=== PATIENT | female | born 1945 | race Caucasian/White ===

== ENCOUNTER 2020-06-10 09:42 | Outpatient (CLI) | payer MEDICARE, OTHER, SELFPAY ==
--- NOTE | 2020-06-10 10:00 | ECG_ITS ---
Measurements Intervals [place] Rate: 58 P: 44 GA: 145 QRS: -31 QRSD: 84 T: 20 QT: 387 QTc: 381 Interpretive Statements SINUS BRADYCARDIA LEFT AXIS DEVIATION LOW QRS VOLTAGE IN PRECORDIAL LEADS POOR R WAVE PROGRESSION, ANTERIOR LEADS BASELINE ARTIFACT- I, II, AVR, AVL, AVF Electronically Signed On 06-10-2020 12:18:00 CDT by Aime Garsia D.O.
== END 2020-06-10 09:43 | disposition home or self-care (01) ==
PROVIDERS: Visit Provider Surgery Plastic and Reconstructive Surgery
DX: E78.00 Pure hypercholesterolemia, unspecified (principal); Z01.818 Encounter for other preprocedural examination; R94.31 Abnormal electrocardiogram [ECG] [EKG]
CPT/HCPCS: 93005

== ENCOUNTER → 2020-06-15 01:20 | Outpatient (CLI) | payer MEDICARE, OTHER, SELFPAY ==
[2020-06-15 20:53] LABS: SARS-CoV-2 RNA PCR Negative
== END ==
PROVIDERS: Visit Provider Surgery Plastic and Reconstructive Surgery
DX: Z01.812 Encounter for preprocedural laboratory examination (principal); Z20.822 Contact with and (suspected) exposure to COVID-19
CPT/HCPCS: C9803; U0003; U0005

== ENCOUNTER 2020-06-18 01:12 | Day surgery (SDC) | payer MEDICARE, OTHER, SELFPAY ==
[2020-06-07 12:58] VITALS: BMI 20.1
--- NOTE | 2020-06-18 08:53 | WPDANESEPPF ---
Anes - Initial Pre Proc Eval Procedure: Operation Date: 06/18/20 14:30 Proposed Procedures p Bilateral Upper Eyelid Blepharoplasty - Lorenzo Flores MD Date/Time: 06/18/20 08:53 Surgeon: Lorenzo Flores MD Pre Op Diagnosis: Dermatochalasis Patient Data Age: 75 Gender: F Height: 1.57 m Weight: 50 kg Allergies Allergy/AdvReac Type Severity Reaction Status Date / Time No Known Allergies Allergy Verified 06/10/20 10:55 Home Medications Medication Instructions Recorded Confirmed Type ascorbic acid (vitamin C) 1 cap PO DAILY 06/07/20 06/07/20 History calcium carbonate-vitamin D3 1 tablet PO DAILY 06/07/20 06/07/20 History [Calcium + D] cholecalciferol (vitamin D3) 50 mcg PO DAILY 06/07/20 06/07/20 History multivitamin [Multiple Vitamin] 1 tablet PO DAILY 06/07/20 06/07/20 History pravastatin 10 mg PO HS 06/07/20 06/07/20 History docusate sodium 100 mg capsule 100 mg PO BID #14 cap 06/10/20 Rx hydrocodone 5 mg-acetaminophen 325 1 tablet PO Q6H PRN #15 tablet 06/10/20 06/10/20 Rx mg tablet ondansetron HCl 4 mg tablet 4 mg PO Q6H PRN #30 tablet 06/10/20 Rx Patient hx anesthesia problems: none Family hx anesthesia problems: none PMFSH Past Medical History Medical History (Updated 06/18/20 @ 08:54 by Bill Osorio MD) Arthritis Hyperlipidemia Surgical History Surgical History History of appendectomy Social History Social History Smoking status: Never smoker Alcohol intake: current Alcohol use details: 1-2 BOTTLES/WEEKS Substance use: never Living arrangements: alone Spiritual care concerns: No Anes - Eval Final PreProcedure Day of Procedure 06/18/20 08:53 Patient weight: normal Heart: regular rate and rhythm Lungs: clear to auscultation and normal air movement Airway: Mallampati scale class II Neurological: alert and oriented Last oral intake: >/= 8 hours ASA classification: II Emergent: no Anesthetic plan: proceed Anesthesia type and monitoring: general GIVS and LMA Informed Consent: The patient's anesthetic plan and its attendant risks and benefits were discussed with the patient/family/POA. Questions were solicited and answers provided to the satisfaction of the patient/family/POA.
[2020-06-18] MEDS: LACTATED RINGERS 1,000 ML 30 ML IV CONT ×2 (12:45→15:15)
[2020-06-18 13:21] VITALS: BP 116/62; PULSE 58; RESP 18; TEMP 37.1; O2SAT 99
--- NOTE | 2020-06-18 13:25 | WPDHPUPDATE1 ---
History and Physical Update Update Date/Time: 06/18/20 13:25 History and Physical has been reviewed, including an updated exam of the patient. There are NO changes in the patient's condition. Risks, benefits, and alternatives have been discussed and questions answered. Patient agrees to proceed with procedure.
--- NOTE | 2020-06-18 13:51 | PM.PROC ---
Procedure Note - Detailed Date of procedure: 06/18/20 Pre-op diagnosis: Dermatochalasis Post-op diagnosis: same Procedure performed: Bilateral upper eyelid blepharoplasty Description of procedure: Preoperatively the risks, benefits, alternatives were discussed in extensive detail. I want her to be very realistic about the risks involved as well as expectations. Made sure answered all of her questions to her satisfaction. Consent was obtained. She voiced understanding. She was marked along her tarsal crease bilateral. I verified symmetry. I then did a pinch technique to estimate the volume of tissue to be removed. While using the pinch technique I did have her close her eyes to verify there would be no lagophthalmos. She was taken to the operating room placed supine on the operating room table. Anesthesia was provided by anesthesiology and prepped and draped in a standard sterile fashion. Surgical time-out was taken. 1% lidocaine and 0.25% Marcaine with epinephrine was used anesthetize locally. I excised a skin flap. I then entered the medial and middle compartments bilateral and removed any clearly excess adipose tissue. I closed using running subcuticular 5 0 Prolene which was brought out medial and lateral and held into place with Steri-Strips. She was taken to the PACU without difficulty. All instrument sponge counts were correct at the end of the case. Anesthesia: GLMA Surgeon: Lorenzo Flores MD Estimated blood loss (mL): 5 Drains: No Packing: No Pathology: none sent Complications: No immediate complications Condition: stable Disposition: PACU
[2020-06-18] MEDS: ceFAZolin 2 GM/D5W 50 ML 2 GM/50 ML BAG IVPB (14:18)
[2020-06-18] MEDS: BUPIVACAINE HCL 0.25% PF 30 ML VIAL INFILTRATE (14:41)
[2020-06-18] MEDS: LIDO 1%/EPINEPHRINE 1:100,000 50 ML VIAL 30 ML INFILTRATE (14:43)
[2020-06-18 15:15] VITALS: BP 122/66; PULSE 86; RESP 16; TEMP 36.2; O2SAT 100
[2020-06-18 15:30] VITALS: BP 124/60; PULSE 81; RESP 18; O2SAT 100
[2020-06-18 15:40] VITALS: BP 128/66; PULSE 78; RESP 12; O2SAT 100
[2020-06-18 15:45] VITALS: BP 135/76; PULSE 72; RESP 12
[2020-06-18] MEDS: oxyCODONE HCL (*CRX) 5 MG TAB IR PO (15:57)
[2020-06-18 16:15] VITALS: BP 136/77; PULSE 74; RESP 12
== END 2020-06-18 16:35 | disposition home or self-care (01) ==
PROVIDERS: Visit Provider Surgery Plastic and Reconstructive Surgery
PROC: (CPT 15822; principal; 2020-06-18 14:30)
DX: H02.834 Dermatochalasis of left upper eyelid (principal); H02.831 Dermatochalasis of right upper eyelid; H04.209 Unspecified epiphora, unspecified side; H53.40 Unspecified visual field defects; E78.5 Hyperlipidemia, unspecified; M19.90 Unspecified osteoarthritis, unspecified site
CPT/HCPCS: 15822; A9270; J0690; J1100; J2405; J2704; J3010; J7120

== ENCOUNTER 2021-12-23 09:20 | Outpatient (CLI) | payer OTHER, SELFPAY ==
--- NOTE | 2021-12-23 09:30 | ECG_ITS ---
Measurements Intervals [place] Rate: 58 P: 18 VT: 132 QRS: -32 QRSD: 92 T: 16 QT: 393 QTc: 387 Interpretive Statements SINUS BRADYCARDIA LEFT AXIS DEVIATION LOW VOLTAGE IN PRECORDIAL LEADS POOR R WAVE PROGRESSION, ANTERIOR LEADS BORDERLINE T WAVE ABNORMALITY- INFERIOR LEADS BASELINE ARTIFACT- I, II, AVR, AVL, AVF BORDERLINE ECG COMPARED TO ECG 06/10/2020 10:04:24 NO SIGNIFICANT CHANGES Electronically Signed On 12-23-2021 10:22:44 CDT by Aime Garsia D.O.
== END 2021-12-23 09:21 | disposition home or self-care (01) ==
LOC: ANHSURGERY 09:27
PROVIDERS: PCP Internal Medicine Infectious Disease; Visit Provider Surgery Plastic and Reconstructive Surgery
DX: E78.5 Hyperlipidemia, unspecified (principal); Z01.818 Encounter for other preprocedural examination
CPT/HCPCS: 93005

== ENCOUNTER 2022-01-01 01:09 | Day surgery (SDC) | payer OTHER, SELFPAY ==
--- NOTE | 2021-12-22 14:26 | PC.NURSE ---
Report to the Outpatient Waiting Room, entrance under the green pavilion located off [facility], at time __0600 on date _01/01/22 . Planned Procedure Time: _0730 . Time changes happen often and if your time is changed the preop area will call you the afternoon before. - You and your visitor will be asked to self-screen and do not enter if you have any COVID symptoms. - We encourage only one visitor and NO visitors under age 16 are allowed at this time. Your visitor will receive communication by the phone number that is given day of service. - The patient visitor is requested to social distance or may leave the building when not with patient due to restrictions. - A mask is required within the hospital. Patients may have clear liquids (water, carbonated beverages, clear teas, apple juice) until 3 hours prior to surgery with a maximum of 20 ounces. - No food from midnight until time of surgery - Infants may have breast milk until 4 hours before surgery, formula 6 hours prior to surgery. - Children will be allowed to drink immediately following surgery. If applicable, please bring a bottle or sippy cup to assist with drinking. Juice, water, soda, and popsicles are readily available. For infants on formula, please bring formula the day of surgery. Pacifiers are allowed. Take the following medications with a SIP of water the morning of surgery: ____NONE Medications to discontinue per physician ___ALL VITAMINS AND SUPPLEMENTS 3 DAYS PRE OP Date to take last dose____12/28/21 Please no make-up, nail hungarian, hairspray, perfume, deodorant, or body powder the day of surgery. No jewelry (including any body piercings) or valuables the day of surgery, leave them at home. Please take a shower or bath the night before, or the morning of, surgery with an antibacterial soap. Wear comfortable, loose fitting clothing. Children are encouraged to wear pajamas. - Jewelry must be removed prior to entering the operating room. Rings and piercings that are not removed may be cut off. - The hospital will not accept responsibility for valuables. - Please leave all valuables, including medications, at home the day of surgery. If you are going home after surgery, a licensed gravel truck driver must drive you home. - NO public transportation without another adult. - We recommend that an adult stay with you for 24 hours following discharge. - We also recommend that you do not drive, make important decision, drink alcoholic beverages, or take any drugs that were not prescribed by your health care provider for at least 24 hours after your discharge t Follow any additional instructions given to you from your surgeon. If you or anyone in your household have experienced Covid symptoms in the past week, please notify your surgeon or the nurse liaison at the phone number below for possible testing. Telephone instructions given to __PATIENT and asked if any additional questions and then verbalized understanding. Patient advised to call surgeon office or pre surgery nurse liaison [phone] if any additional questions.
[2021-12-22 14:34] VITALS: BMI 20.1
[2022-01-01] VITALS (12 sets, daily range): BP systolic 107–153; BP diastolic 49–84; PULSE 50–80; RESP 12–20; TEMP 36.4; O2SAT 96–100; BMI 21.3
[2022-01-01] MEDS: LACTATED RINGERS 1,000 ML 30 ML IV CONT ×2 (06:25→09:33)
[2022-01-01 06:33] LABS: Urine Cotinine NEGATIVE
--- NOTE | 2022-01-01 06:57 | WPDHPUPDATE1 ---
History and Physical Update Update Date/Time: 01/01/22 06:57 History and Physical has been reviewed, including an updated exam of the patient. There are NO changes in the patient's condition. Risks, benefits, and alternatives have been discussed and questions answered. Patient agrees to proceed with procedure.
--- NOTE | 2022-01-01 07:11 | WPDANESEPPF ---
Anes - Initial Pre Proc Eval Procedure: Operation Date: 01/01/22 07:30 Proposed Procedures p Bilateral Lower Eyelid Blepharoplasty, - Lorenzo Flores MD s Facial Fat Grafting - Lorenzo Flores MD Date/Time: 01/01/22 07:11 Surgeon: Lorenzo Flores MD Pre Op Diagnosis: unacceptable cosmetic appearance Patient Data Age: 76 Gender: F Height: 1.57 m Weight: 53 kg Last Vital Signs Temp 97.6 F 01/01/22 06:25 Pulse 69 01/01/22 06:25 Resp 16 01/01/22 06:25 BP 153/83 H 01/01/22 06:25 Pulse Ox 98 01/01/22 06:25 O2 Del Method Room Air 01/01/22 06:25 Allergies Allergy/AdvReac Type Severity Reaction Status Date / Time No Known Allergies Allergy Verified 01/01/22 06:13 Home Medications Medication Instructions Recorded Confirmed Type pravastatin 10 mg tablet 10 mg PO HS 06/07/20 12/22/21 History calcium carbonate 600 mg-vitamin 1 tablet PO DAILY 07/03/20 01/01/22 History D3 5 mcg (200 unit) tablet cholecalciferol (vitamin D3) 50 50 mcg PO DAILY 07/03/20 01/01/22 History mcg (2,000 unit) capsule multivitamin 1 tablet PO DAILY 07/03/20 01/01/22 History cyanocobalamin (vitamin B-12) 1,000 mcg PO DAILY 12/22/21 01/01/22 History 1,000 mcg tablet omeprazole 20 mg capsule,delayed 20 mg PO DAILY 12/22/21 12/22/21 History release Laboratory Tests 01/01/22 06:09 Cotinine Negative Patient hx anesthesia problems: none Family hx anesthesia problems: none Results Review: All pre-operative results and documents have been reviewed as part of the pre-operative evaluation. [facility] Past Medical History Medical History Arthritis Hyperlipidemia Surgical History Surgical History History of appendectomy Social History Social History Smoking status: Never smoker Alcohol intake: current Drinks per week: 5 Alcohol use details: WINE Substance use: never Living arrangements: alone Spiritual care concerns: No Anes - Eval Final PreProcedure Day of Procedure 01/01/22 07:11 Patient weight: normal Heart: regular rate and rhythm Lungs: clear to auscultation Airway: Mallampati scale class II Neurological: alert and oriented Last oral intake: >/= 8 hours ASA classification: II Emergent: no Anesthetic plan: proceed Anesthesia type and monitoring: general ETT and standard monitoring Results Review: All pre-operative results and documents have been reviewed as part of the pre-operative evaluation. Informed Consent: The patient's anesthetic plan and its attendant risks and benefits were discussed with the patient/family/POA. Questions were solicited and answers provided to the satisfaction of the patient/family/POA.
[2022-01-01] MEDS: BUPIVACAINE/EPINEPHRINE 0.25% 50 ML VIAL 10 ML INFILTRATE (07:29)
[2022-01-01] MEDS: LIDOCAINE HCL 1% PF 30 ML VIAL 10 ML INFILTRATE (07:29)
[2022-01-01] MEDS: ceFAZolin 2 GM/D5W 50 ML 2 GM/50 ML BAG IVPB (07:29)
[2022-01-01] MEDS: BACITRACIN OP OINT 3.5 GM TUBE 1 APPLIC EACH EYE (09:24)
--- NOTE | 2022-01-01 09:29 | W.PM.PROC2 ---
Procedure Note - Detailed Date of Procedure 01/01/22 Pre-op Diagnosis unacceptable cosmetic appearance Post-op Diagnosis Same Procedure Performed 1. Bilateral lower eyelid transconjunctival blepharoplasty. 2. Facial fat grafting Surgeon Lorenzo Flores MD Anesthesia General Findings Facial fat grafting to infraorbital, malar, zygomatic, and christian. Right: 12cc Left 11cc (Total 23cc). [place] site abdomen Description of Procedure Preoperatively the risks, benefits, alternatives were discussed in extensive detail. I want her to be very realistic about the risks involved as well as expectations. We discussed this in great length with her daughter who would not been present at previous visits. As such we completed a significant portion of the consultation just so she is well informed. Patient is planning to proceed with laser treatment at a 2nd stage as well and she understands this will not completely correct her deformity and she will still have skin laxity. We discussed all the risks including but not limited to blindness. All questions answered. Consent obtained. She was marked in the preoperative holding area with her verification. She was taken to the operating room placed supine on the operating room table. Anesthesia provided by anesthesiology and prepped and draped in a standard sterile fashion. Surgical time-out was taken. Copiously irrigated the eyes with BSS solution. An abdominal examination was completed and no hernias were palpable. An 18 gauge was used to make a stab incision at the umbilicus in a tumesced with a tumescent solution. I then proceeded and use low volume of 1% lidocaine with epinephrine in the planned injection sites for fat grafting. Proceeded the abdomen. Suction lipectomy was completed using a 3 mm multi hole cannula to a [employer] gravity separation device. We allowed this to separate while proceeding to the eyes. A corneal protector was placed. A transconjunctival incision was made. I continued dissection preseptal to just past the edge of the orbital rim. I removed all 3 fat compartments just was clearly excess. The inferior oblique was identified both eyes there is no evidence of injury. Irrigated with saline. Verified the contour before completion. I then proceeded with fat grafting. We used the adipose tissue and this was placed into 1 cc syringes. Using a 0.7 mm blunt-tip cannula through small 18 gauge stab incisions I completed fat grafting to the facial as volumes above. Corneal protectors were removed. Copious irrigated the eyes with BSS solution. Bacitracin ophthalmic was placed. She was woken taken to the PACU without difficulty. All instrument sponge counts were correct at the end of the case. Estimated Blood Loss 10 Drains No Packing No Pathology None sent Complications No immediate complications Condition Stable Disposition PACU
[2022-01-01] MEDS: fentaNYL CITRATE INJ (*CRX) 100 MCG/2 ML VIAL 25 MCG IV PUSH ×2 (09:56→10:01)
[2022-01-01] MEDS: ONDANSETRON INJ 4 MG/2 ML VIAL IV PUSH (11:04)
[2022-01-01] MEDS: ONDANSETRON HCL ODT 4 MG TABLET PO (13:28)
--- NOTE | 2022-01-01 14:25 | SUR.PHASEII ---
1325: Patient vitals stable and she is unhooked from the monitors getting dressed. She became nauseated and vomited after IV was out so RN got an order for ODT zofran and gave it to patient and let her rest before discharging.
== END 2022-01-01 13:50 | disposition home or self-care (01) ==
PROVIDERS: PCP Internal Medicine Infectious Disease; Visit Provider Surgery Plastic and Reconstructive Surgery
PROC: (CPT 15820; principal; 2022-01-01 07:30)
PROC: (CPT 15769; 2022-01-01 07:30)
DX: Z41.1 Encounter for cosmetic surgery (principal); E78.5 Hyperlipidemia, unspecified
CPT/HCPCS: 15820; 15773; 80307; A9270; J0171; J0330; J0690; J1100; J1170; J2250; J2405; J2704; J3010; J7030; J7120

== ENCOUNTER 2022-02-02 11:09 | Emergency (ER) | payer MEDICARE, OTHER, SELFPAY ==
--- NOTE | ~2022-02-02 | CT_ITS ---
EXAMINATION: CT facial & cervical spine wo DATE: 02/02/2022 14:35 INDICATION: Head injury. TECHNIQUE: Computed tomography (CT) of the maxillofacial region and cervical spine was performed with out intravenous contrast. Automated exposure control and iterative reconstruction technique were empl oyed. The dose-length product was 223.47 mGy-cm. COMPARISON: None FINDINGS: MAXILLOFACIAL CT: There are likely changes of ocular lens replacement surgeries. There are fractures of the nasal bones . There is rightward deviation the nasal septum. The paranasal sinuses are clear. The mastoid air tatiana ls are normal. CERVICAL SPINE CT: There is mild scarring at the lung apices. There is 2 mm anterolisthesis of C4 on C5 and C5 on C6. Ve rtebral body heights are normal. There is mildly decreased disc height at C3-C4, moderately decreased disc height at C4-C5, and severely decreased disc height at C5-C6 and C6-C7. The following disc leve ls are specifically discussed: C2-C3: There is no uncovertebral joint osteoarthritis. There is mild bilateral facet joint osteoarthr itis. There is no neural foraminal stenosis. There is no central canal stenosis. C3-C4: There is moderate right and mild left uncovertebral joint osteoarthritis. There is severe bila teral facet joint osteoarthritis. There is mild bilateral neural foraminal stenosis. There is no cent ral canal stenosis. C4-C5: There is moderate right and mild left uncovertebral joint osteoarthritis. There is moderate ri ght and severe left facet joint osteoarthritis. There is mild bilateral neural foraminal stenosis. Th ere is no central canal stenosis. C5-C6: There is severe right and moderate left uncovertebral joint osteoarthritis. There is severe ri ght and mild left facet joint osteoarthritis. There is mild right neural foraminal stenosis. There is mild central canal stenosis. C6-C7: There is severe bilateral uncovertebral joint osteoarthritis. There is mild right and moderate left facet joint osteoarthritis. There is mild bilateral neural foraminal stenosis. There is mild ce ntral canal stenosis. C7-T1: There is no uncovertebral joint osteoarthritis. There is mild bilateral facet joint osteoarthr itis. There is no neural foraminal stenosis. There is no central canal stenosis. IMPRESSION: 1. Fractures of the nasal bones. 2. Severe cervical spondylosis. Reviewed, dictated and finalized at location A. [employer] SYSTEMS DESIGN ENGINEER
--- NOTE | ~2022-02-02 | CT_ITS ---
EXAMINATION: CT brain wo con DATE: 02/02/2022 14:35 INDICATION: Head injury. TECHNIQUE: Computed tomography (CT) of the head was performed without intravenous contrast. The mA wa s adjusted according to patient size. Iterative reconstruction technique was employed. The dose-lengt h product was 605.33 mGy-cm. COMPARISON: None FINDINGS: There is no intracranial hemorrhage, acute infarction, or abnormal intracranial mass lesion . The ventricles are normal in size. There are likely changes of ocular lens replacement surgeries. T here are fractures of the nasal bones. The paranasal sinuses are clear. The mastoid air cells are nor mal. IMPRESSION: 1. Normal brain. 2. Fractures of the nasal bones. Reviewed, dictated and finalized at location A. [employer] SUPERVISOR
[2022-02-02 11:25] VITALS: BP 149/94; PULSE 70; RESP 16; TEMP 36.6; O2SAT 100
[2022-02-02 14:13] VITALS: O2SAT 99
--- NOTE | 2022-02-02 14:20 | ED.HEATRA ---
HPI - Head Injury General Chief complaint: Head Injury Stated complaint: fall on wednesday Time Seen by Provider: 02/02/22 14:04 Source: patient Mode of arrival: ambulatory Limitations: no limitations History of Present Illness HPI Narrative: This is a 77 year old female that presents to the ER after a head injury 3 days ago. Reports she fell outside and hit her head on the concrete. Reports she is unsure what caused her to fall. She wasn't having any prodromal symptoms. Reports since she has had mild headaches and dizziness. Reports nasal pain. She is not on any anticoagulation. Denies vision changes, chest pain, shortness of breath, vomiting, focal numbness or weakness. Related Data Home Medications Medication Instructions Recorded Confirmed pravastatin 10 mg tablet 10 mg PO HS 06/07/20 12/22/21 calcium carbonate 600 mg-vitamin 1 tablet PO DAILY 07/03/20 01/01/22 D3 5 mcg (200 unit) tablet cholecalciferol (vitamin D3) 50 50 mcg PO DAILY 07/03/20 01/01/22 mcg (2,000 unit) capsule multivitamin 1 tablet PO DAILY 07/03/20 01/01/22 cyanocobalamin (vitamin B-12) 1,000 mcg PO DAILY 12/22/21 01/01/22 1,000 mcg tablet omeprazole 20 mg capsule,delayed 20 mg PO DAILY 12/22/21 12/22/21 release Allergies Allergy/AdvReac Type Severity Reaction Status Date / Time No Known Allergies Allergy Verified 02/02/22 14:14 Review of Systems Review of Systems: CONSTITUTIONAL: Denies fever EYES: Denies visual changes CARDIOVASCULAR: Denies chest pain, palpitations, or edema. RESPIRATORY: Denies dyspnea. GASTROINTESTINAL: Denies vomiting MUSCULOSKELETAL: Denies back pain, joint pain, or myalgia. NEUROLOGIC: Reports headache. Denies numbness, or weakness. All systems reviewed & are unremarkable except as noted in HPI and below PMFSH Past Medical History Medical History Arthritis Hyperlipidemia Surgical History Surgical History History of appendectomy Social History Social History Smoking status: Never smoker Alcohol intake: current Drinks per week: 5 Alcohol use details: WINE Substance use: never Spiritual care concerns: No Exam Narrative: GENERAL: Well-appearing, well-nourished, and in no acute distress. HEAD: Normocephalic. Ecchymosis below the eyes and over the nasal bridge EYES: PERRLA and EOMI. ENT: Nares clear, no rhinorrhea or epistaxis. Mucous membranes moist. Oropharynx without tonsillar hypertrophy exudate or other lesions. Bilateral TMs pearly arthur non-bulging NECK: Supple. No adenopathy or masses. CHEST: Clear to auscultation. No respiratory distress. No wheezes rales or rhonchi HEART: Regular rate and rhythm. No murmur heard. Normal peripheral pulses. EXTREMITIES: Normal range of motion. No edema. Strength equal in bilateral upper and lower extremities (5/5) SKIN: Warm, dry, no rash. NEURO: No focal deficits. Alert and oriented x3. Cranial nerves II through XII grossly intact. Normal gait PSYCH: Normal mood and affect Course Vital Signs Vital signs: Vital Signs Temperature 97.8 F 02/02/22 11:25 Pulse Rate 70 02/02/22 11:25 Respiratory Rate 16 02/02/22 11:25 Blood Pressure 149/94 H 02/02/22 11:25 Pulse Oximetry 100 02/02/22 11:25 Temperature 97.8 F 02/02/22 11:25 Pulse Rate 70 02/02/22 11:25 Respiratory Rate 16 02/02/22 11:25 Blood Pressure 149/94 H 02/02/22 11:25 Pulse Oximetry 99 02/02/22 14:13 Oxygen Delivery Room Air 02/02/22 14:13 MDM - Head Injury MDM Narrative Medical decision making narrative: Patient presents to the ER after a head injury 3 days ago with headaches, dizziness, nasal pain. Patient's vitals are stable. She is neurologically intact. No other focal areas of pain noted. CT scan of the brain is normal. CT scan of the cervical spine and facial bones shows fractures
== END 2022-02-02 16:11 | disposition home or self-care (01) ==
PROVIDERS: Emergency Provider Physician Assistant; PCP Internal Medicine Infectious Disease
DX: S02.2XXA Fracture of nasal bones, initial encounter for closed fracture (principal); E78.5 Hyperlipidemia, unspecified; M19.90 Unspecified osteoarthritis, unspecified site; W18.30XA Fall on same level, unspecified, initial encounter; M47.812 Spondylosis without myelopathy or radiculopathy, cervical region
CPT/HCPCS: 70450; 70486; 72125; 99284